=== PATIENT | female | born 1955 | race Caucasian/White ===

== ENCOUNTER 2025-04-26 16:27 | Emergency (ER) | payer OTHER ==
[2025-04-26 16:37] VITALS: BMI 26.2
[2025-04-26 18:09] LABS: ABSOLUTE IMMATURE GRANULOCYTES 0.02 x10^3/uL (0.0-0.031); BASOPHILS # 0.07 x10^3/uL (0.01-0.08); EOSINOPHIL % 4.7 % (0.7-5.8); EOSINOPHILS # 0.39 x10^3/uL (0.04-0.36); MCHC 32.9 g/dl (32.2-35.5); MEAN CELL VOLUME 90.3 fl (79.4-94.8); MEAN PLT VOLUME 12.3 fl (9.4-12.3); MONOCYTE # 0.83 x10^3/uL (0.24-0.86); MONOCYTE % 10.1 % (4.7-12.5); RDW 13.8 % (12.4-16.4)
[2025-04-26 18:18] LABS: INR 0.98 (0.83-1.09); PROTHROMBIN TIME (PATIENT) 10.7 SEC (9.7-13.0)
[2025-04-26 19:07] LABS: GLUCOSE,RANDOM 108.0 mg/dL (74-106)
[2025-04-26 19:08] LABS: TOT PROT 7.8 g/dl (6.4-8.2)
[2025-04-26 19:09] LABS: CO2 30.0 mmol/L (21-32)
[2025-04-26 19:10] LABS: ALK PHOS 106.0 U/L (40-150)
[2025-04-26 19:13] LABS: CREATININE 0.79 mg/dL (0.55-1.3); SGOT/AST 25.0 U/L (5-34); SGPT/ALT 27.0 U/L (0-55)
[2025-04-26] MEDS ORDERED: ACETAMINOPHEN 325 MG TABLET (FP) ONE (20:54)
[2025-04-26] MEDS ORDERED: MECLIZINE HCL 25 MG TABLET (FP) ONE (20:54)
[2025-04-26 20:59] LABS: HIV INTERPRETATION NEGATIVE (NEGATIVE)
[2025-04-26 21:01] LABS: HCV DIAGNOSTIC IN-HOUSE W/RFLX NON-REACTIVE (NONREACTIVE)
[2025-04-26] MEDS: ACETAMINOPHEN 500 MG TABLET (FP) PO ONE (21:01)
[2025-04-26] MEDS: MECLIZINE HCL 25 MG TABLET (FP) PO ONE (21:01)
[2025-04-27 00:31] VITALS: TEMP 97.5
[2025-04-27 01:19] VITALS: BP 153/88; PULSE 87; RESP 17
== END 2025-04-27 01:23 | disposition short-term general hospital (02) ==
LOC: JER 16:27
DX: I65.02 Occlusion and stenosis of left vertebral artery (principal); I10 Essential (primary) hypertension; R42 Dizziness and giddiness; R51.9 Headache, unspecified; R11.2 Nausea with vomiting, unspecified; M54.2 Cervicalgia; H93.13 Tinnitus, bilateral
CPT/HCPCS: 36415; 70450-TC; 70496-TC; 70498-TC; 71046-TC-FY; 72125-TC; 80053; 84484; 85025; 85610; 86803; 86850; 86900; 86901; 87389; 87637-QW; 93005; 93010; 99285-25; Q9967